=== PATIENT | male | born 1990 | race Caucasian/White ===

== ENCOUNTER 2021-03-30 12:47 | Emergency (ER) | payer OTHER ==
[2021-03-30 12:57] VITALS: BP 129/67
[2021-03-30] MEDS ORDERED: LIDOCAINE 1%-EPI 1:100000 20 ML MDV SUBQ STA (13:27)
--- NOTE | 2021-03-30 13:27 | ED Physician Documentation ---
PD HPI UPPER EXT INJURY - Stated complaint Stated Complaint: L HAND CUT - Chief complaint Chief Complaint: Laceration - History obtained from History obtained from: Patient (Right-handed gentleman who is up-to-date on tetanus cut his left hand while working on a dryer at home just prior to arrival.) Review of Systems Constitutional: reports: Reviewed and negative Eyes: reports: Reviewed and negative Ears: reports: Reviewed and negative Nose: reports: Reviewed and negative PD PAST MEDICAL HISTORY - Allergies Allergies/Adverse Reactions: Allergies Allergy/AdvReac Type Severity Reaction Status Date / Time No Known Drug Allergies Allergy Verified 03/30/21 12:57 PD ED PE NORMAL - Vitals Vital signs reviewed: Yes - General General: Alert and oriented X 3, No acute distress - Extremities Extremities: Other (Flap laceration on the dorsum of the left hand at the level of the fifth MCP without distal neurovascular compromise or tendon injury.) - Neuro Neuro: Alert and oriented X 3, Normal speech Results - Vitals Vitals: Vital Signs - 24 hr 03/30/21 12:51 Temperature 36.9 C Heart Rate 72 Respiratory 16 Rate Blood Pressure 129/67 O2 Saturation 99 Oxygen O2 Source Room air Procedures - Laceration (location) L hand Wound type: Curved, Flap, Superficial, Into subcut fat Neurovascular status: Sensory intact, Motor intact, Vascular intact Anesthesia: Lidocaine 1% with epi Wound preparation: Irrigated copiously NS Skin layer closure: Nylon, Interrupted, Size #-0 - enter number (4-0), Sutures - enter # (4) Other: Patient tolerated well (He did get vagal but did not pass out), No complications, Neurovascular intact, Tetanus UTD Departure - Departure Disposition: 01 Home, Self Care Clinical Impression: Laceration Condition: Good Record reviewed to determine appropriate education?: Yes Instructions: ED Laceration Hand Comments: Come back for any signs of infection which would include: Redness, swelling, drainage, increased pain, or fevers. You can wash it soap and water. Keep it covered and moist with bacitracin ointment which is available over the counter; avoid neosporin. Follow-up with your physician in 14 days for suture removal.
== END 2021-03-30 14:10 | disposition home or self-care (01) ==
LOC: ED 12:47
DX: S61.412A Laceration without foreign body of left hand, initial encounter (principal); W26.8XXA Contact with other sharp object(s), not elsewhere classified, initial encounter; Y93.89 Activity, other specified; Y92.009 Unspecified place in unspecified non-institutional (private) residence as the place of occurrence of the external cause
CPT/HCPCS: 12001; 99283

== ENCOUNTER 2022-07-08 11:25 | Emergency (ER) | payer OTHER ==
[2022-07-08 11:48] VITALS: BP 137/73
--- NOTE | 2022-07-08 12:34 | ED Physician Documentation ---
PD HPI UPPER EXT INJURY - Stated complaint Stated Complaint: LT THUMB INJ - Chief complaint Chief Complaint: Laceration - History obtained from History obtained from: Patient - History of Present Illness Location: Left, Finger Where injury occurred: Home Timing - onset: Today Pain level max: 3 Pain level now: 2 - Additonal information Additional information: Patient is a 31-year-old male, right-handed who was using a knife at home today when he accidentally lacerated the tip of his left thumb. Unable to stop the bleeding at home. Tetanus up-to-date. Nothing makes it better, worse with movement and palpation. PD PAST MEDICAL HISTORY - Past Medical History Past Medical History: No - Past Surgical History Past Surgical History: No - Present Medications Home Medications: Ambulatory Orders Medication Instructions Recorded Confirmed Anastrozole 1 mg PO .WEEKLY 07/08/22 07/08/22 clomiPHENE citrate [Clomid] 25 mg PO DAILY 07/08/22 07/08/22 - Allergies Allergies/Adverse Reactions: Allergies Allergy/AdvReac Type Severity Reaction Status Date / Time No Known Drug Allergies Allergy Verified 07/08/22 11:48 - Living Situation Living Arrangement: reports: At home - Family History Family history: reports: Non contributory - Immunizations Immunizations: TDAP current <10years PD ED PE NORMAL - Vitals Vital signs reviewed: Yes - General General: Alert and oriented X 3, No acute distress - HEENT HEENT: Moist mucous membranes - Derm Derm: Warm and dry - Extremities Extremities: Other (L hand - Small avulsion off the tip of the left thumb. Superficial. Small bleeding. Neurovascular intact. No bony exposure.) - Neuro Neuro: Alert and oriented X 3 Results - Vitals Vitals: Vital Signs - 24 hr 07/08/22 07/08/22 07/08/22 11:45 11:57 12:06 Temperature 36.3 C L Heart Rate 73 Respiratory 15 16 15 Rate Blood Pressure 137/73 H O2 Saturation 98 07/08/22 07/08/22 12:26 12:43 Temperature Heart Rate Respiratory 16 15 Rate Blood Pressure O2 Saturation Oxygen O2 Source Room air PD Medical Decision Making - ED course Complexity details: considered differential, d/w patient ED course: Patient with a small fingertip avulsion on the left thumb. Approximately 2 to 3 mm deep and approximately 4 to 5 mm wide, 2 mm tall. A finger tourniquet was placed over the thumb to stop the bleeding and then Dermabond was applied. When the Dermabond dried, the tourniquet was removed. Thumb was placed in a foam finger splint. Warnings of infection and instructions on wound care given at bedside. Patient counseled regarding signs and symptoms for which I believe and urgent re-evaluation would be necessary. Patient with good understanding of and agreement to plan and is comfortable going home at this time This document was made in part using voice recognition software. While efforts are made to proofread this document, sound alike and grammatical errors may occur. Departure - Departure Disposition: 01 Home, Self Care Clinical Impression: Fingertip avulsion Qualifiers: Encounter type: initial encounter Qualified Code(s): S61.209A - Unspecified open wound of unspecified finger without damage to nail, initial encounter Condition: Good Instructions: ED Laceration Amputation Finger Tip Open Tx Follow-Up: MAGI OZUNA MD [Primary Care Provider] - As Needed Comments: The glue will dissolve on its own. Please follow-up with your doctor as needed for further care. Please return if you worsen. Return if you notice redness, swelling or drainage from the wound Discharge Date/Time: 07/08/22 12:44
== END 2022-07-08 12:44 | disposition home or self-care (01) ==
LOC: ED 11:25
DX: S61.209A Unspecified open wound of unspecified finger without damage to nail, initial encounter (principal); W26.0XXA Contact with knife, initial encounter; Y92.009 Unspecified place in unspecified non-institutional (private) residence as the place of occurrence of the external cause
CPT/HCPCS: 12002; 99281